=== PATIENT | male | born 1940 ===

== ENCOUNTER → 2016-07-28 | Outpatient (CLI) | payer OTHER ==
--- NOTE | 2016-07-28 16:55 | DIREP ---
PROCEDURE:CHEST 2 VIEWS COMPARISON:None. INDICATIONS:CAD, SOB FINDINGS: LUNGS/PLEURA:No significant pulmonary parenchymal abnormalities. No effusions. VASCULATURE:Normal. Unremarkable pulmonary vasculature. CARDIAC:Normal. No cardiac silhouette abnormality or cardiomegaly. MEDIASTINUM:Normal. No visible mass or adenopathy. BONES:Normal. No fracture or visible bony lesion. OTHER:Negative. CONCLUSION:Normal examination. Dictated by: Ronaldo Garza Jr. on 07/28/2016 at 04:54 PM
--- NOTE | 2016-08-01 13:16 | ECHO ---
DATE OF SERVICE: 07/28/2016 INDICATIONS: A 75-year-old gentleman, a [facility] patient, elected for an echocardiographic study for evaluation of ischemic heart disease, assessment of systolic and diastolic function or any wall motion abnormality or structural heart disease. FINDINGS: 1. Study quality was fair. 2. Underlying rhythm was sinus rhythm. 3. LV function was preserved. EF around 55 -60%. There is a moderate degree of concentric LVH. Septal thickness was 1.1 cm. No LVOT obstruction noted. There is a septal akinesia seen. 4. LV dimension was normal at 5.2 cm in end diastolic dimension. 5. RV size and EF were normal. 6. Both atria showed mild dilatation. 7. Mitral valve was showing mild calcification of the annulus. No stenosis. Mitral valve mean gradient by Doppler was 1.5 mmHg. Doppler signal exam across the mitral inflow showed E to A reversal with grade 1 diastolic dysfunction. 8. Aortic valve is trileaflet, minimally calcified, normal LVOT dimensions and velocities. Aortic valve mean velocity by Doppler signal was around 1 m/sec, normal aortic valve area. 9. There is at least moderate aortic regurgitation. 10. No pericardial effusion. 11. Inferior vena cava was normal in size. IMPRESSION: 1. Preserved EF around 60%. Septal akinesia, moderate concentric LVH, septal thickness 1.1 cm. No LVOT obstruction. 2. RV size and EF were normal. 3. Minimal dilatation of both atria. 4. Moderate aortic regurgitation, no stenosis. 5. Grade 1 diastolic dysfunction. 6. No mitral regurgitation or stenosis. 7. Normal pulmonary artery systolic pressure. 8. No pericardial effusion. 9. Normal IVC size. Yobani Wing MD DR: JUAN/sharlene JOB# [id number] CC: Nabor Burciaga NP
== END | disposition home or self-care (01) ==
LOC: RT 13:20
PROVIDERS: ATTEND Nurse Practitioner Family
DX: I25.10 Atherosclerotic heart disease of native coronary artery without angina pectoris (principal); R06.02 Shortness of breath
CPT/HCPCS: 71020; 93307